=== PATIENT | male | born 1965 | race Caucasian/White ===

== ENCOUNTER 2022-10-02 08:44 | Emergency (ER) | payer BC, SELFPAY ==
--- NOTE | 2022-10-02 09:20 | XR_ITS ---
FINAL REPORT CLINICAL HISTORY: pain on the right no known inj FINDINGS: AP and lateral views were obtained. There is no acute fracture. There is no malalignment. The disc spaces are maintained. There are minimal hypertrophic changes at L5-S1. IMPRESSION: No acute process. Reviewed, Interpreted and Dictated by Aayush Santiago MD Transcribed by Bari Peraza Authenticated and [facility]
--- NOTE | 2022-10-02 09:27 | EXP.UTC ---
Discharge Plan Disposition Patient Disposition: Home, Self-Care Condition: Good Prescriptions Prescriptions: New cyclobenzaprine 10 mg Tablet 10 mg PO BID PRN (Reason: Muscle Spasm) Qty: 20 0RF methylprednisolone 4 mg Tablets,Dose Pack 4 mg PO DIRECTED Qty: 21 0RF Referrals Follow up/Referrals: Provider,Referral, MD [Primary Care Provider] - See instructions Activity Restrictions/Add. Instructions Additional Instructions/Restrictions: Go home and rest. It would be best if you rested tomorrow too. No heavy lifting. No twisting. Take the oral medications as directed. The muscle relaxer (cyclobenzaprine--Flexeril) will make you drowsy, so don't drive or operate heavy machinery after taking it. Don't start the oral steroids (medrol dose pack) until tomorrow, since you had the shots in here today. Follow up with your regular doctor. GO TO THE ER FOR ANY WORSENING SYMPTOMS OR CONCERN, ESPECIALLY BOWEL OR BLADDER ISSUES, SADDLE AREA NUMBNESS, FEVER, ETC Clinical Impressions Clinical Impression: Low back pain Stand Alone Forms Stand Alone Forms: Work/School Release Discharge ED Provider: Ryne Clifford [facility] General Stated complaint: Back pain no accident Time Seen by Provider: 10/02/22 09:27 History of Present Illness Provider Complaint: He states that he has had low back pain that radiates down his right leg for the past 1 week. He denies any known injury. He has had episodes of similar issues in the past. He denies any bowel or bladder issues. Related Data Previous Rx's Medication Instructions Recorded cyclobenzaprine 10 mg tablet 10 mg PO BID PRN Muscle Spasm #20 10/02/22 tabs methylprednisolone 4 mg tablets in 4 mg PO DIRECTED #21 tabs 10/02/22 a dose pack Allergies Allergy/AdvReac Type Severity Reaction Status Date / Time No Known Allergies Allergy Verified 10/02/22 09:39 [facility] Social History Smoking Status: Former smoker alcohol intake: never current occupational status: retired Travel in the last 8 weeks: None ROS Obtained: Yes All systems reviewed & no additional complaints except as documented Constitutional Constitutional: Denies chills and Denies fever(s) Eyes Eyes: Denies eye discharge ENT Ears, Nose, Mouth, and Throat: Denies dizziness, Denies otalgia, Denies neck pain and Denies sore throat Cardiovascular Cardiovascular: Denies chest pain Respiratory Respiratory: Denies shortness of breath, Denies chest congestion, Denies cough, Denies stridor and Denies wheezing Gastrointestinal Gastrointestingal: Denies nausea or vomiting Musculoskeletal Musculoskeletal: Reports as per HPI, Reports back pain and Denies neck pain Integumentary/Breasts Skin/Breast: Denies rash Neurologic Neurologic: Denies dizziness and Denies paresthesias Allergic/Immunologic Allergic/Immunologic: Denies wheezing Physical Exam General General appearance: alert and in no apparent distress Head Head exam: atraumatic, normocephalic and normal inspection Eye Eye exam: Present normal appearance, PERRL and EOMI ENT ENT exam: Present normal exam, normal oropharynx, mucous membranes moist, TM's normal bilaterally and normal external ear exam Neck Neck exam: Present normal inspection, full ROM and trachea midline; Absent meningismus or lymphadenopathy Chest Chest inspection: Present normal inspection and symmetric chest wall rise; Absent tenderness Respiratory Respiratory exam: Present normal lung sounds bilaterally; Absent respiratory distress Cardiovascular Cardiovascular exam: Present regular rate and normal rhythm; Absent JVD Abdominal Exam Abdominal exam: Present soft and normal bowel sounds; Absent distention, tenderness or guarding Extremities Exam Extremities exam: Present normal inspection, full ROM and normal capillary refill; Absent calf tenderness Back Exam Back exam: Present normal inspection; Absent
[2022-10-02 09:36] VITALS: BP 138/96; PULSE 110; RESP 18; TEMP 37.1; O2SAT 99; BMI 25.1
[2022-10-02 10:03] VITALS: BP 138/96; PULSE 110; RESP 18; TEMP 37.1
== END 2022-10-02 10:22 | disposition home or self-care (01) ==
PROVIDERS: Emergency Provider Nurse Practitioner Family
DX: M54.50 Low back pain, unspecified (principal)
CPT/HCPCS: 72100; 96372; 99212; G0463

== ENCOUNTER 2022-12-20 11:40 | Emergency (ER) | payer BC, SELFPAY ==
[2022-12-20] VITALS (11 sets, daily range): BP systolic 113–151; BP diastolic 73–95; PULSE 61–84; RESP 12–20; TEMP 36.8; O2SAT 95–100; BMI 25.8; BMI 23.6
--- NOTE | 2022-12-20 11:40 | ECG_ITS ---
APPROVED REPORT Exam: Resting ECG HR:85 bpm ECG Measurements Heart Rate 85 AXES IL 159 P 52 QRSd 102 QRS -6 QT 366 T 30 QTc 408 Conclusion SINUS RHYTHM WITH SINUS ARRHYTHMIA POSSIBLE LEFT ATRIAL ENLARGEMENT [-0.1mV P-WAVE IN V1/V2] POSSIBLE RIGHT VENTRICULAR CONDUCTION DELAY [RSR (QR) IN V1/V2] POSSIBLE LEFT VENTRICULAR HYPERTROPHY [VOLTAGE CRITERIA PLUS LAE OR QRS WIDENING] ABNORMAL ECG UNCONFIRMED REPORT Electronically signed by : Tyrone Santana MD 12/21/2022 20:57:25
--- NOTE | 2022-12-20 11:53 | XR_ITS ---
FINAL REPORT CLINICAL HISTORY: chest pain FINDINGS: TWO-VIEW CHEST The heart size is normal. The mediastinum is normal. The lungs are clear. There is no pneumothorax. IMPRESSION: No acute cardiopulmonary process. Reviewed, Interpreted and Dictated by Vu Pugh III, MD Transcribed by Katty Felix Authenticated and . [facility]
[2022-12-20 12:09] LABS: Basophils # 0.1 K/mm3 (0-0.2); Basophils % 1.5 % (0.1-2.0); Eosinophils % 0.5 % (0.1-12.0); Hematocrit 43.5 % (42.0-52.0); Hemoglobin 14.8 g/dL (14.1-18.0); Lymphocytes # 1.4 K/mm3 (0.7-4.5); Lymphocytes % 21.2 % (10-50); Mean Corpuscular HGB Conc 33.9 g/dL (31.8-35.4); Mean Corpuscular Hemoglobin 31.4 pg (27.0-31.2); Mean Corpuscular Volume 92.7 fl (80-94); Mean Platelet Volume 7.4 fl (7.4-10.4); Monocytes # 0.4 K/mm3 (0.1-1.0); Monocytes % 5.2 % (1.7-9.3); Neutrophils # 4.8 K/mm3 (1.8-7.8); Neutrophils % 71.6 % (37.0-80.0); Platelet Count 343 K/mm3 (142-424); Red Cell Distribution Width 13.1 % (11.5-17.5); White Blood Count 6.7 K/mm3 (4.8-10.8)
[2022-12-20 12:11] LABS: Chloride 105 mmol/L (98-107); Potassium 4.2 mmoL/L (3.5-5.1); Sodium 140 mmol/L (136-145)
[2022-12-20 12:14] LABS: Blood Urea Nitrogen 14 mg/dl (9-20); Creatinine Clearance Estimated 98 mL/min (50-200); Estimated Glomerular Filt Rate 88 ml/min (>60); GFR (African American) 106 ML/MIN (>60)
[2022-12-20 12:15] LABS: Anion Gap 12.2 mEq/L (5-15); Calcium 9.2 mg/dl (8.4-10.2); Carbon Dioxide 27 mmol/L (22.0-30.0); Glucose 129 mg/dl (74-100)
[2022-12-20 12:37] LABS: Troponin I < 0.01 ng/ml (0.00-0.034)
--- NOTE | 2022-12-20 15:10 | PC.NURSE ---
PT AMBULATING TO THE BR
--- NOTE | 2022-12-20 15:17 | HMH.EDGENADL ---
Discharge Plan Disposition Patient Disposition: Home, Self-Care Condition: Good Prescriptions Prescriptions: No Action cyclobenzaprine 10 mg Tablet 10 mg PO BID PRN (Reason: Muscle Spasm) Qty: 20 0RF methylprednisolone 4 mg Tablets,Dose Pack 4 mg PO DIRECTED Qty: 21 0RF Referrals Follow up/Referrals: Ag Rahamn MD [Staff Physician] - See instructions Activity Restrictions/Add. Instructions Additional Instructions/Restrictions: Call Dr. Rahman, hub borer, to make an appointment to be seen as soon as possible for further evaluation. Follow-up with Dr. Rahman for elevated cholesterol level for further treatment. Additional instructions for CHEST PAIN: Return immediately if worsening chest pain, vomiting, shortness of breath, fever, coughing of blood. Clinical Impressions Clinical Impression: Atypical chest pain Instructions Patient Instructions: DI for Atypical Chest Pain Discharge ED Provider: Jesús Muniz General Adult HPI General Chief complaint: Chest Pain Stated complaint: chest pain Time Seen by Provider: 12/20/22 15:16 Mode of Arrival: Ambulatory Source of Information: Patient Limitations: No Limitations Description of Symptoms (Recalled from ER Triage Doc. by RN): pt to ed c/o left sided chest pain that is dull in nature. pt states the pain began this morning and has been intermittent. pt denies any pmh. pt denies n/v or soa. History of Present Illness HPI narrative: Patient complains of intermittent chest discomfort and palpitations that began this morning. He says that he gets a very slight discomfort or sense of pressure in his left parasternal area to his left shoulder that is also associated with a feeling like he can feel his own heartbeat. It lasts a couple of minutes and goes away. Not associated with shortness of breath, nausea, or diaphoresis. Currently has no discomfort. No history of any heart problems. He has had his cholesterol checked in the past and it has been normal. He requests a lipid profile. He is not a smoker but does use nicotine pods. He does not have diabetes or hypertension. His father had a heart attack in his 60s. He has never had a cardiac work-up. He walks on a treadmill 3-4 times a week and does not get any symptoms, no chest pain or shortness of breath. No recent travel, hospitalizations, surgeries. No leg pain or swelling. Related Data Previous Rx's Medication Instructions Recorded cyclobenzaprine 10 mg tablet 10 mg PO BID PRN Muscle Spasm #20 10/02/22 tabs methylprednisolone 4 mg tablets in 4 mg PO DIRECTED #21 tabs 10/02/22 a dose pack Allergies Allergy/AdvReac Type Severity Reaction Status Date / Time No Known Allergies Allergy Verified 10/02/22 09:39 [facility] Disclaimer: The information contained in this section may have been updated after the patient was seen, as this information can be updated by other users. Social History (Updated 10/02/22 @ 19:21 by Ryne Clifford APRN) Smoking Status: Never smoker alcohol intake: never current occupational status: retired Travel in the last 8 weeks: None ROS Obtained: Yes Systems reviewed as appropriate & no additional complaints except as documented Constitutional Constitutional: Denies fever(s), Denies headache(s) and Denies weakness ENT Ears, Nose, Mouth, and Throat: Denies headache(s), Denies nasal discharge and Denies sore throat Cardiovascular Cardiovascular: Reports chest pain, Denies diaphoresis, Reports palpitations and Denies radiating jaw, neck or arm pain Respiratory Respiratory: Denies shortness of breath and Denies cough Gastrointestinal Gastrointestingal: Denies abdominal pain, constipation, diarrhea or vomiting Genitourinary Male Genitourinary: Denies difficulty urinating and Denies flank pain Musculoskeletal Musculoskeletal: Denies numbness Neurologic Neurologic: Denies headache(s), Denies numbness and Denies weakness Endocrine Endo
[2022-12-20 15:30] LABS: Troponin I < 0.01 ng/ml (0.00-0.034)
[2022-12-20 15:36] LABS: Chol/HDL Ratio 5.3 (1-3.5); Cholesterol 259 mg/dl (140-200); HDL Cholesterol 49 mg/dl (40-60); Triglycerides 133 mg/dl (30-150); VLDL Cholesterol 27 mg/dL (0-40)
[2022-12-20 15:46] LABS: Direct LDL Cholesterol 159.01 mg/dL (100-129)
== END 2022-12-20 16:23 | disposition home or self-care (01) ==
PROVIDERS: Emergency Provider Emergency Medicine; PCP Internal Medicine Adolescent Medicine
DX: R07.89 Other chest pain (principal)
CPT/HCPCS: 71046; 80048; 80061; 84484; 85025; 93005; 99285

== ENCOUNTER → 2023-02-14 07:00 | Outpatient (CLI) | payer BC, SELFPAY ==
[2023-02-14 17:59] LABS: Basophils # 0.1 K/mm3 (0-0.2); Basophils % 1.2 % (0.1-2.0); Eosinophils # 0.1 K/mm3 (0.0-0.4); Eosinophils % 0.8 % (0.1-12.0); Hematocrit 46.4 % (42.0-52.0); Hemoglobin 14.8 g/dL (14.1-18.0); Lymphocytes # 2.4 K/mm3 (0.7-4.5); Lymphocytes % 38.1 % (10-50); Mean Corpuscular HGB Conc 31.9 g/dL (31.8-35.4); Mean Corpuscular Hemoglobin 30.7 pg (27.0-31.2); Mean Corpuscular Volume 96.3 fl (80-94); Mean Platelet Volume 8.6 fl (7.4-10.4); Monocytes # 0.4 K/mm3 (0.1-1.0); Monocytes % 5.8 % (1.7-9.3); Neutrophils # 3.4 K/mm3 (1.8-7.8); Neutrophils % 54.2 % (37.0-80.0); Platelet Count 376 K/mm3 (142-424); Red Blood Count 4.82 M/mm3 (4.60-6.20); Red Cell Distribution Width 13.3 % (11.5-17.5); White Blood Count 6.2 K/mm3 (4.8-10.8)
[2023-02-14 18:04] LABS: Alanine Aminotransferase 51 U/L (12-78); Albumin Level 4.8 g/dl (3.5-5.0); Albumin/Globulin Ratio 1.7 (1.1-1.8); Alkaline Phosphatase 86 U/L (38-126); Anion Gap 13.9 mEq/L (5-15); Aspartate Amino Transferase 39 U/L (17-59); Bilirubin,Total 0.5 mg/dl (0.2-1.3); Blood Urea Nitrogen 16 mg/dl (9-20); Carbon Dioxide 27 mmol/L (22.0-30.0); Chloride 101 mmol/L (98-107); Chol/HDL Ratio 5.8 (1-3.5); Cholesterol 243 mg/dl (140-200); Estimated Glomerular Filt Rate 78 ml/min (>60); GFR (African American) 94 ML/MIN (>60); Globulin 2.8 g/dL (1.3-3.2); Glucose 96 mg/dl (74-100); HDL Cholesterol 42 mg/dl (40-60); Potassium 4.9 mmoL/L (3.5-5.1); Sodium 137 mmol/L (136-145); Total Protein,Serum 7.6 g/dl (6.3-8.2); Triglycerides 139 mg/dl (30-150); VLDL Cholesterol 28 mg/dL (0-40)
[2023-02-14 18:26] LABS: Hemoglobin A1C 5.3 % (4.0-6.0)
== END ==
PROVIDERS: Visit Provider Nurse Practitioner Family
DX: Z00.00 Encounter for general adult medical examination without abnormal findings (principal); Z13.1 Encounter for screening for diabetes mellitus; Z13.220 Encounter for screening for lipoid disorders; Z86.79 Personal history of other diseases of the circulatory system; Z83.438 Family history of other disorder of lipoprotein metabolism and other lipidemia
CPT/HCPCS: 80053; 80061; 83036; 85025

== ENCOUNTER → 2023-06-13 23:35 | Outpatient (CLI) | payer BC, SELFPAY ==
[2023-06-13 17:13] LABS: Chol/HDL Ratio 4.5 (1-3.5); Cholesterol 256 mg/dl (140-200); HDL Cholesterol 57 mg/dl (40-60); Triglycerides 154 mg/dl (30-150); VLDL Cholesterol 31 mg/dL (0-40)
[2023-06-13 17:24] LABS: Direct LDL Cholesterol 149.34 mg/dL (100-129)
== END ==
PROVIDERS: PCP Nurse Practitioner Family; Visit Provider Nurse Practitioner Family
DX: E78.5 Hyperlipidemia, unspecified (principal)
CPT/HCPCS: 80061

== ENCOUNTER → 2023-06-18 06:52 | Outpatient (CLI) | payer SELFPAY ==
--- NOTE | 2023-06-18 06:59 | CT_ITS ---
APPROVED REPORT Tax Economist: CLINICAL INDICATION Chest Pain TECHNIQUE Image Acquisition: A 128 slice MDCT scanner (Videollaa View) was used for data acquisition. A noncontrast coronary calcium scan was performed. A tube voltage of 120 KVp was used. The patient received no medications prior to the coronary calcium CT. Image Reconstruction Transaxial images were reconstructed at 0.67 mm slide thickness. Data was reviewed interactively on an advanced workstation capable of 2 and 3-dimensional displays in all conventional reconstruction formats, including multiplanar reformations, maximum intensity projections, curved multiplanar reformations, and volume rendered reconstructions. When applicable, selected routine images describing the relevant coronary anatomy and pathology were saved and sent to PACS. Complications None Technical Quality Overall image quality was good. Total DLP (Dose-Length Product) is 143.91 mGy-cm. The reported value represents the total of one or more individual components during the CT acquisition of this date and at this time, and as such, the same value may appear in more than one CT report depending on the interpreting/reporting physicians. COMPARISON None FINDINGS CT Coronary Calcium Scoring LMA (Left Main Artery) = 14.5 LAD (Left Anterior Descending) = 49.9 LCX (Left Coronary Circumflex) = 0 RCA (Right Coronary Artery) = 3.6 Total Calcium Score = 68 using the AJ-130 method. There is presence of mild calcification in the aorta and mitral annulus, but not the aortic valve, mitral valve, pericardium, or myocardium. IMPRESSION -Coronary artery calcification is present. -Total Calcium Score (Agatston Score) = 68 using the AJ-130 method. -According to The Multi-Ethnic Study of Atherosclerosis (AGUILAR) Coronary Artery Calcium (CAC) risk, the estimated probability of a non-zero calcium score for an individual of your ethnicity and age is 56%. The observed calcium score of 68 is at 75 percentile for subjects of the same age, sex, and race/ethnicity who are free of clinical cardiovascular disease and treated diabetes. The interpretation of the calcium heart score is based on the following continuum*: 0 = no calcified plaque detected (risk of coronary artery disease is very low ??? less than 5%) 1-10 = calcium detected in extremely minimal levels (risk of coronary diseases is still low ??? less than 10%) 11-100 = mild levels of plaque detected with certainty (minimal narrowing of heart arteries is likely) 101-300 = moderate levels of plaque detected (relatively high risk of a heart attack within 3-5 years) 300-400 = extensive levels of plaque detected (very high risk of heart attack, high levels of vascular disease are present) *The calcium heart score quantifies the burden of coronary calcification/plaque in the coronary arteries. The calcium heart score is not able to evaluate the presence or burden of non-calcified (i.e. soft) plaque. CRITICAL RESULT None COMMUNICATION Per this written report The findings of this Coronary Calcium CT were reviewed, reported, and signed by Raghu Puentes MD (Crew Director). Conclusion Electronically signed by : Lisa Puentes, 06/24/2023 13:00:12
== END ==
PROVIDERS: PCP Nurse Practitioner Family; Visit Provider Nurse Practitioner Family
DX: E78.5 Hyperlipidemia, unspecified (principal)
CPT/HCPCS: 75571

== ENCOUNTER 2025-08-27 10:28 | Outpatient (CLI) | payer BC, SELFPAY ==
[2025-08-27 20:55] LABS: Hematocrit 44.4 % (42.0-52.0); Hemoglobin 14.9 g/dL (14.1-18.0); Immature Granulocytes % 0.3 %; Mean Corpuscular HGB Conc 33.6 g/dL (31.8-35.4); Mean Corpuscular Hemoglobin 31.0 pg (27.0-31.2); Mean Corpuscular Volume 92.5 fl (80-94); Nucleated Red Blood Cells % 0 %; Platelet Count 305 K/mm3 (142-424); Red Blood Count 4.80 M/mm3 (4.60-6.20); Red Cell Distribution Width-SD 43.6 fL; White Blood Count 6.5 K/mm3 (4.8-10.8)
[2025-08-27 21:14] LABS: Hemoglobin A1C 5.3 % (4.0-6.0)
[2025-08-27 21:45] LABS: Anion Gap 18.9 mEq/L (5-15); Blood Urea Nitrogen 15 mg/dl (9-20); Carbon Dioxide 26 mmol/L (22.0-30.0); Chloride 99 mmol/L (98-107); Creatinine,Serum 1.00 mg/dl (0.66-1.25); Potassium 4.9 mmoL/L (3.5-5.1); Sodium 139 mmol/L (136-145)
[2025-08-27 21:46] LABS: Alanine Aminotransferase 50 U/L (12-78); Albumin Level 4.9 g/dl (3.5-5.0); Albumin/Globulin Ratio 1.6 (1.1-1.8); Alkaline Phosphatase 89 U/L (38-126); Aspartate Amino Transferase 44 U/L (17-59); Bilirubin,Total 0.7 mg/dl (0.2-1.3); Calcium 9.6 mg/dl (8.4-10.2); Cholesterol 268 mg/dl (140-200); Estimated Glomerular Filt Rate 77 ml/min (>60); GFR (African American) 93 ML/MIN (>60); Globulin 3.0 g/dL (1.3-3.2); Glucose 93 mg/dl (74-100); HDL Cholesterol 53 mg/dl (40-60); Total Protein,Serum 7.9 g/dl (6.3-8.2); Triglycerides 178 mg/dl (30-150)
[2025-08-27 22:15] LABS: Thyroid Stimulating Hormone 1.38 uIU/mL (0.465-4.68)
[2025-08-27 22:30] LABS: Hepatitis C Ab Qual. W/ RFX NEGATIVE (Negative)
[2025-08-31 06:11] LABS: Hepatitis B Surface Antigen Negative (Negative)
== END 2025-08-27 23:59 | disposition home or self-care (01) ==
LOC: LAB.DROPOF 08-30 10:29
PROVIDERS: PCP Family Medicine; Visit Provider Family Medicine
DX: Z11.4 Encounter for screening for human immunodeficiency virus [HIV] (principal); Z11.59 Encounter for screening for other viral diseases; E78.5 Hyperlipidemia, unspecified; R53.83 Other fatigue
CPT/HCPCS: 80053; 80061; 83036; 84402; 84403; 84443; 85025; 86803; 87389